=== PATIENT | female | born 1985 | race Native Hawaiian/Other Pacific Islander ===

== ENCOUNTER 2017-08-26 09:41 | Inpatient (IN) | payer OTHER ==
[2017-08-26 10:32] VITALS: BMI 26.4
[2017-08-26] MEDS: Lactated Ringer's 1,000 ML IV SCH ×6 (11:00→16:50)
[2017-08-26 12:18] LABS: SQUAMOUS EPITHIAL 4 /hpf (0-5); URINE BACTERIA RARE (<OCC); URINE BILIRUBIN NEGATIVE (NEGATIVE); URINE CLARITY CLOUDY (Clear); URINE COLOR YELLOW (YELLOW); URINE GLUCOSE (UA) 50 mg/dL (Normal); URINE LEUKOCYTE ESTERASE NEG Leu/uL (Negative); URINE NITRATE NEGATIVE (NEGATIVE); URINE PROTEIN NEGATIVE (NEGATIVE); URINE UROBILINOGEN 0.2-1.0 mg/dL (0.2-1.0)
[2017-08-26 12:24] LABS: URINE BLOOD TRACE (NEGATIVE)
[2017-08-26 14:32] LABS: BASO % 0.2 % (0.0-2.0); EOS % 0.1 % (0.0-4.0); HEMOGLOBIN 12.9 g/dL (12.0-16.0); LYMPH # 1.2 K/uL (1.0-4.3); LYMPH % 6.6 % (20.0-40.0); MEAN CELL VOLUME 88.1 fl (81.0-99.0); MEAN CORPUSCULAR HGB CONC 32.9 g/dL (33.0-37.0); MEAN PLATELET VOLUME 9.9 fl (7.2-11.7); MONO # 0.5 K/uL (0.0-0.8); MONO % 3.1 % (0.0-10.0); NEUT # 16.1 K/uL (1.8-7.0); NRBC % 0.1 % (0.0-0.0); PLATELET COUNT 276 K/uL (130-400); RBC 4.45 Mil/uL (3.80-5.20); RED CELL DISTRIBUTION WIDTH 13.8 % (11.5-14.5); WHITE BLOOD COUNT 17.9 K/uL (4.8-10.8)
[2017-08-26 15:06] LABS: LYMPHOCYTE 10 % (20-50); MONOCYTE 4 % (0-10); NEUTROPHIL 86 % (42-75); PLATELET ESTIMATE NORMAL (NORMAL); TOTAL CELLS COUNTED 100
[2017-08-26] MEDS ORDERED: Fentanyl/Bupivacaine HCl 250 ML EPI ONE (16:23)
[2017-08-26] MEDS ORDERED: Lactated Ringer's 1,000 ML IV SCH ×4 (17:11→23:15)
[2017-08-26] MEDS ORDERED: ceFAZolin 1 GM in Sodium Chloride 0.9% 100 ML IVPB ONE (19:19)
[2017-08-26] MEDS ORDERED: Oxytocin 30 UNITS in Sodium Chloride 0.9% 500 ML IV ONE (19:20)
[2017-08-26] MEDS ORDERED: ceFAZolin IV 2 gm in Dextrose 2 GM/50 ML BAG IVPB ONE ×2 (19:52→19:53)
[2017-08-26] MEDS ORDERED: Phenylephrine 10 mg/ml Inj ONE (20:06)
[2017-08-26] MEDS ORDERED: Lidocaine 2% PF (10 ml) Amp ONE ×2 (20:09→21:18)
[2017-08-26] MEDS ORDERED: Morphine 5 mg/10 ml preservative-free Inj(Duramorph) ONE (20:14)
[2017-08-26] MEDS ORDERED: DiphenhydrAMINE 50 mg/ml Inj IVP PRN (21:12)
[2017-08-26] MEDS ORDERED: Ketamine 50 mg/ml Inj (10 ml) ONE (21:21)
[2017-08-26] MEDS ORDERED: Midazolam 2 MG/2 ML VIAL ONE (21:21)
[2017-08-26] MEDS ORDERED: Oxycodone/Acetaminophen 5/325 mg Tab PO PRN (23:07)
[2017-08-27 08:08] LABS: HEMOGLOBIN 10.4 g/dL (12.0-16.0); MEAN CELL VOLUME 87.3 fl (81.0-99.0); MEAN CORPUSCULAR HEMOGLOBIN 29.2 pg (27.0-31.0); MEAN CORPUSCULAR HGB CONC 33.4 g/dL (33.0-37.0); RBC 3.55 Mil/uL (3.80-5.20); RED CELL DISTRIBUTION WIDTH 13.5 % (11.5-14.5); WHITE BLOOD COUNT 17.6 K/uL (4.8-10.8)
--- NOTE | 2017-08-27 08:41 | OBHP ---
Datetime: 08/26/2017 12:48 IP Adm Impression: Term, intrauterine IP Admit Plan: Admit to unit; Initiate labor protocol; Observation/Evaluation Admit Comment, IP Provider: 31 yo IUP 37.4 weeks presents today c/o painful ctx since last nigh t, e/5-6 min, now pain is 5/10. Denies lof, vb, +FM. Denies headache, blurred vision, no chest pain o r any other pain, palptitations, no recent F/N/V. PNC: Dr Teran POb: Pgyn: none PMH: denies. FMH: denies. PSH: none Meds: pnv NKDA. SH: - tobacco, etoh, drugs. VS: wnl FHR: 140/mod onelia/cat 1/no decel. [place]: ctxing e/5-6 min A/P: 31 yo with IUP 37.4 weeks with ctx, active labor Admit to unit Initiate labor protocol monitor labor progress Case discussed with Dr Rivera. Sneha PGY 1 ob addendum: pt seen _ exmined by me. agree with above assessment and plan. pt unable to comply with pelvic exa m. admit for labor management Pelvic Type - PN: Adequate Extremities - PN: Normal Abdomen - PN: Normal Back - PN: Not Done Breast - PN: Not Done (Annotations: Data stored by N on behalf of user) Lungs - PN: Normal Heart - PN: Normal Thyroid - PN: Normal Neurologic - PN: Normal HEENT - PN: Normal General - PN: Normal Presentation-Admit: Vertex FHR - Baseline A Provider: 140 Contraction Comments Provider: q6min Comments, ACOG Physical Exam: VE attempted pt could comply w/ exam- Later patient examined by Dr. Rondon who stated patient lives could be about 7 cm but exam was comp romised by patient's discomfort EGA AdmitDate IP: 37.5 Vital Signs Provider: Reviewed IP Chief Complaint: Uterine contractions NICHD Variability Prov Fetus A: Moderate 6-25bpm NICHD Accel Fetus A IP Provider: [id number] FHR Category Provider Fetus A: Category I NICHD Decel Fetus A IP Provider: None Genitourinary Exam: Not Done DTRs - PN: Not Done
--- NOTE | 2017-08-27 08:47 | OBADHP ---
Datetime: 08/26/2017 14:00 Admit Comment, IP Provider: 31 yo IUP 37.4 weeks presents today c/o painful ctx since last nigh t, e/5-6 min, now pain is 5/10. Denies lof, vb, +FM. Denies headache, blurred vision, no chest pain o r any other pain, palptitations, no recent F/N/V. PNC: Dr Teran POb: Pgyn: none PMH: denies. FMH: denies. PSH: none Meds: pnv NKDA. SH: - tobacco, etoh, drugs. VS: wnl FHR: 140/mod onelia/cat 1/no decel. [place]: ctxing e/5-6 min A/P: 31 yo with IUP 37.4 weeks with ctx, active labor Admit to unit Initiate labor protocol monitor labor progress Case discussed with Dr Rivera. YBecerrgayla PGY 1 ob addendum: pt seen _ exmined by me. agree with above assessment and plan. pt unable to comply with pelvic exa m. admit for labor management IP Chief Complaint: Uterine contractions EGA AdmitDate IP: 37.5 IP Adm Impression: Term, intrauterine IP Admit Plan: Admit to unit Datetime: 08/26/2017 12:48 Pelvic Type - PN: Adequate Extremities - PN: Normal Abdomen - PN: Normal Back - PN: Not Done Breast - PN: Not Done (Annotations: Data stored by CPN on behalf of user) Lungs - PN: Normal Heart - PN: Normal Thyroid - PN: Normal Neurologic - PN: Normal HEENT - PN: Normal General - PN: Normal Presentation-Admit: Vertex FHR - Baseline A Provider: 140 Contraction Comments Provider: q6min Comments, ACOG Physical Exam: VE attempted pt could comply w/ exam- Later patient examined by Dr. Rondon who stated patient lives could be about 7 cm but exam was comp romised by patient's discomfort Vital Signs Provider: Reviewed NICHD Variability Prov Fetus A: Moderate 6-25bpm NICHD Accel Fetus A IP Provider: [id number] FHR Category Provider Fetus A: Category I NICHD Decel Fetus A IP Provider: None Genitourinary Exam: Not Done DTRs - PN: Not Done
--- NOTE | 2017-08-27 12:04 | OBPPN ---
Datetime: 08/27/2017 11:53 PP Pain Prov: Within normal limits PP Nausea Prov: Denies PP Flatus Prov: Yes PP Breasts Prov: Normal PP Heart Prov: Normal PP Lungs Prov: Normal PP Abdomen/Uterus Prov: Normal PP Lochia Prov: Normal PP Vulva/Perineum Prov: Normal PP CVA Tenderness Prov: Normal PP Extremities Prov: Normal PP Comments Phys Exam Prov: fundus firm under umbilicus Incision clean/dry/intact PP Impression Prov: Normal progression PP Plan Prov: Continue present management PP Progress Note Prov: Patient denies CP, no SOB, no N/V, tolerating Po diet, ambulating/voiding wel l, mild lochia, abdominal pain tolerable with meds, +flatus A/P POD #1 1. Reg diet 2. Percocet/Motrin prn pain 3. Encourage ambulation/ IP PP Procedures: None Vital Signs Provider PP: Reviewed; Within Normal Limits
[2017-08-28] MEDS: Oxycodone/Acetaminophen 5/325 mg Tab PO PRN ×2 (08:44→20:14)
--- NOTE | 2017-08-28 10:49 | OBPPN ---
Datetime: 08/28/2017 10:46 PP Pain Prov: Within normal limits PP Nausea Prov: Denies PP Flatus Prov: Yes PP BM Prov: No PP Breasts Prov: Normal PP Heart Prov: Normal PP Lungs Prov: Normal PP Abdomen/Uterus Prov: Normal PP Lochia Prov: Normal PP Vulva/Perineum Prov: Normal PP CVA Tenderness Prov: Normal PP Extremities Prov: Normal PP C/S Incision Prov: Normal PP Progress Prov: Normal PP Impression Prov: Normal progression PP Plan Prov: Continue present management PP Progress Note Prov: POD 2 Continue postop care anticiapte discharge in am Vital Signs Provider PP: Reviewed; Within Normal Limits
[2017-08-29] MEDS: Oxycodone/Acetaminophen 5/325 mg Tab PO PRN (09:09)
--- NOTE | 2017-08-29 10:13 | OBPPN ---
Datetime: 08/29/2017 10:11 PP Pain Prov: Within normal limits PP Nausea Prov: Denies PP Flatus Prov: Yes PP Breasts Prov: Not Done PP Heart Prov: Normal PP Lungs Prov: Normal PP Abdomen/Uterus Prov: Normal PP Lochia Prov: Not Done PP Vulva/Perineum Prov: Not Done PP CVA Tenderness Prov: Normal PP Extremities Prov: Normal PP C/S Incision Prov: Normal PP Impression Prov: Normal progression PP Plan Prov: Discharge PP Progress Note Prov: Patient and will ambulating tolerating diet and pain well controlled Vital signs stable afebrile Uterus firm below the umbilicus Incision clean dry and intact Extremities no Homans Postoperative day #3 Patient cleared for discharge No heavy lifting and nothing per vagina analgesia as needed prescription provided Vital Signs Provider PP: Reviewed
--- NOTE | 2017-08-29 10:15 | OBDCSUM ---
Datetime: 08/29/2017 10:13 Discharged to, Provider: Home Follow up at, Provider: Parul Brown Instr Activity: Normal activity Disch Instr Diet: Regular Discharge Instructions, Provider: Routine instructions given Discharge Diagnosis, Provider: Term Delivered Follow up in weeks, Provider: 1 week Disch Referrals: None Contraception discussed, Prov: Yes Disch Activity Restrictions: No exercising; No lifting; No sexual activity; Nothing in vagina - Inte rcourse, tampons, douche Discharge Comment, Provider: Patient cleared for discharge Contraception after Delivery: Undecided
[2017-08-29 19:06] VITALS: BP 121/78; PULSE 96; RESP 20; TEMP 98.1; O2SAT 99
== END 2017-08-29 14:25 | disposition home or self-care (01) | DRG 766 ==
LOC: H.EROB2 09:41 → H.L&D 13:47 → H.OB/GYN 08-27 00:50
PROVIDERS: ADMIT Obstetrics & Gynecology; ATTEND Obstetrics & Gynecology
PROC: 10D00Z1 Extraction of Products of Conception, Low, Open Approach (ICD-10-PCS; principal; 2017-08-26)
PROC: 4A1HXCZ Monitoring of Products of Conception, Cardiac Rate, External Approach (ICD-10-PCS; 2017-08-26)
DX: O36.5930 Maternal care for other known or suspected poor fetal growth, third trimester, not applicable or unspecified (principal); Z37.0 Single live birth; Z3A.37 37 weeks gestation of pregnancy